=== PATIENT | male | born 1945 | race African-American/Black ===

== ENCOUNTER 2021-03-09 12:35 | Outpatient (CLI) | payer MEDICARE, MEDICAID ==
[~2021-03-09 12:35] MED LIST: Iopamidol 370 76% 100 ML VIAL ONE
== END 2021-03-09 12:36 | disposition home or self-care (01) ==
LOC: NAV CT 12:35
PROVIDERS: ATTEND Orthopaedic Surgery
DX: R10.9 Unspecified abdominal pain (principal); R16.0 Hepatomegaly, not elsewhere classified; E27.8 Other specified disorders of adrenal gland; K86.2 Cyst of pancreas; J98.4 Other disorders of lung; M87.9 Osteonecrosis, unspecified; M47.814 Spondylosis without myelopathy or radiculopathy, thoracic region
CPT/HCPCS: 74177; Q9967

== ENCOUNTER 2021-05-25 10:01 | Outpatient (CLI) | payer OTHER | END 2021-05-25 10:02 | disposition home or self-care (01) | LOC: NAV CT 10:01 | PROVIDERS: ATTEND Internal Medicine | DX: B18.2 Chronic viral hepatitis C (principal); K59.09 Other constipation; R93.3 Abnormal findings on diagnostic imaging of other parts of digestive tract; R16.0 Hepatomegaly, not elsewhere classified | CPT/HCPCS: 74170 ==